=== PATIENT | male | born 1965 | race Caucasian/White ===

== ENCOUNTER → 2017-09-06 | Day surgery (SDC) | payer BC, OTHER | LOC: MSO 09:15 | DX: D12.5 Benign neoplasm of sigmoid colon (principal); D12.0 Benign neoplasm of cecum; D12.3 Benign neoplasm of transverse colon; R19.5 Other fecal abnormalities; I10 Essential (primary) hypertension; Z87.891 Personal history of nicotine dependence; Z80.0 Family history of malignant neoplasm of digestive organs; Z83.71 Family history of colonic polyps | CPT/HCPCS: 00811; A4649; J2704; J7120 ==

== ENCOUNTER → 2017-09-23 | Outpatient (CLI) | payer BC, OTHER ==
[2017-09-23 09:26] LABS: HEMATOCRIT 44.9 % (42.0-52.0); HEMOGLOBIN 15.6 g/dL (13.5-18.0); MEAN PLATELET VOLUME 9.4 fl (7.4-10.4); RED BLOOD COUNT 5.45 M/mm3 (4.20-5.60); RED CELL DISTRIBUTION WIDTH 13.5 % (11.5-14.5); WHITE BLOOD COUNT 12.2 K/mm3 (4.8-10.8)
[2017-09-23 09:43] LABS: ALBUMIN 4.4 g/dL (3.5-5.0); BUN/CREATININE RATIO 9.1 (6.0-26.0); CALCIUM 8.9 mg/dL (8.4-10.2); POTASSIUM 3.7 mmol/L (3.6-5.0); TOTAL BILIRUBIN 0.8 mg/dL (0.2-1.3); TOTAL PROTEIN 8.5 g/dL (6.3-8.2)
== END ==
LOC: RAD 08:45
PROVIDERS: Surgery
DX: D37.4 Neoplasm of uncertain behavior of colon (principal); N40.0 Benign prostatic hyperplasia without lower urinary tract symptoms
CPT/HCPCS: Q9967

== ENCOUNTER → 2018-09-12 | Day surgery (SDC) | payer BC | LOC: MSO 07:30 | DX: K63.5 Polyp of colon (principal); Z85.038 Personal history of other malignant neoplasm of large intestine; Z86.010 Personal history of colon polyps; Z90.49 Acquired absence of other specified parts of digestive tract; I10 Essential (primary) hypertension; Z87.891 Personal history of nicotine dependence | CPT/HCPCS: 00811; J2704; J3010; J7120 ==